=== PATIENT | female | born 1965 | race Hispanic/Latino ===

== ENCOUNTER 2018-12-25 15:32 | Observation (INO) | payer OTHER ==
[~2018-12-25] VITALS: Ht 162.6 cm; Wt 84.1 kg
[2018-12-25] MEDS ORDERED: ASPIRIN 81 MG CHEW TAB PO ONE ×2 (16:00→18:00)
--- NOTE | 2018-12-25 17:32 | Diagnostic Imaging Report ---
EXAMINATION: CXR 2 VIEW - HOPD INDICATION: ^[id number] ^[id number] COMPARISON: None FINDINGS: PA and lateral views TUBES and LINES: None. LUNGS: Lungs are well inflated. There is no evidence of pneumonia or pulmonary edema. PLEURA: No pleural effusion or pneumothorax. HEART AND MEDIASTINUM: The cardiomediastinal silhouette is unremarkable. BONES AND SOFT TISSUES: No acute osseous lesion. Soft tissues are unremarkable. UPPER ABDOMEN: No free air under the diaphragm. IMPRESSION: No acute thoracic abnormality. Signed by: Dr. Álvaro Buckner MD on 12/25/2018 5:28 PM
--- NOTE | 2018-12-25 17:32 | NUR ---
DR SARKAR AT BEDSIDE FOR RE-EVAL AND DISCUSING THE CURRENT PLAN OF CARE,VERBALIZED UNDERSTANDING. NO SIGNS OF ACUTE DISTRESS NOTED AT THIS TIME.
[2018-12-25] MEDS ORDERED: ENOXAPARIN INJ 80 MG/0.8 ML SYR SC ONE (18:30)
--- OUTSIDE RECORDS SUMMARY | 2018-12-25 18:42 | XMS REPORT | Clinical Summary ---
Author Author [facility] Address Unknown Phone Unavailable Care Team Providers Care Real Estate Marketing Coordinator Name Role Phone Pcp, No PCP Unavailable Allergies Comments Active Allergy Reactions Severity Noted Date Cephalexin 06/15/2017 Morphine 06/15/2017 Penicillins 06/15/2017 Medications End Date Status Medication Sig Dispensed Refills Start Date Active levothyroxine (SYNTHROID, Take 88 mcg 0 LEVOTHROID) 88 MCG tablet by mouth Every morning on an empty stomach. Active Problems Not on file Social History Date Tobacco Use Types Packs/Day Years Used Never Assessed Alcohol Use Drinks/Week oz/Week Comments No Sex Assigned at Date Recorded Not on file Industry Job Start Date Occupation Not on file Not on file Not on file Travel End Travel History Travel Start No recent travel history available. Last Filed Vital Signs Not on file Plan of Treatment Not on file Results Not on fileafter 12/24/2017 Insurance Payer Benefit Subscriber ID Type Phone Address Plan / Group [facility] H[facility]/POS CARE POS SELECT CHOICE
--- OUTSIDE RECORDS SUMMARY | 2018-12-25 18:42 | XMS REPORT ---
Author Author [facility] Address Unknown Phone Unavailable Care Team Providers Care Sales Market Leader Name Role Phone Greg SARKAR Unavailable Unavailable LAZ ALCAZAR Unavailable Unavailable Problems This patient has no known problems. Allergies, Adverse Reactions, Alerts This patient has no known allergies or adverse reactions. Medications This patient has no known medications. Results Test Description Test Time Test Comments Text Results Atomic Results Result Comments CXR 2 VIEW - HOPD 2018-12-25 17:28:00 [place] [address] Patient Name: DANIELLE VEE MR #: [id number] : 1965 Age/Sex: 53/F Req #: [id number] Adm Physician: Ordered by: JOSELYN SARKAR MD Report #: [id number] Location: [facility] Room/Bed: Procedure: [id number] HOPD/CXR 2 VIEW - HOPD Exam Date: 12/25/18 Exam Time: 1649 REPORT STATUS: Signed EXAMINATION: CXR 2 VIEW - HOPD INDICATION: [id number] COMPARISON: None FINDINGS: PA and lateral views TUBES and LINES: None. LUNGS: Lungs are well inflated. There is no evidence of pneumonia or pulmonary edema. PLEURA: No pleural effusion or pneumothorax. HEART AND MEDIASTINUM: The cardiomediastinal silhouette is unremarkable. BONES AND SOFT TISSUES: No acute osseous lesion. Soft tissues are unremarkable. UPPER ABDOMEN: No free air under the diaphragm. IMPRESSION: No acute thoracic abnormality. Signed by: Dr. Álvaro Rico MD on 12/25/2018 5:28 PM Dictated By: ÁLVARO RICO MD 27 Transcribed By: KRYSTINA on 12/25/181727 COPY TO: JOSELYN SARKAR MD RAPID TROPONIN I 2017-06-15 14:16:00 RAPID TROPONIN I (BEAKER) (test bijq=4378) < ng/mL <0.05 RAPID [id number] 14:16:00* Test Item Value Reference Range Comments RAPID CKMB (BEAKER) (test rwpd=2223) < ng/mL 0.0-4.3 CT, CHEST WITH IV CONTRAST- PE TEST [id number] 13:20:00Reason for exam:-> CHEST PAINonset todayIs the patient ?->NoWhat is the patient's sedation requirement?->No SedationFINAL REPORT HISTORY: CHEST PAIN COMPARISON : None Technique : Multiple axial images of the chest were performed from the lung apices to the lung bases with 5 mm slice thickness with the administration of IV contrast. Images were further reconstructed with 1.25 mm slice thickness through the pulmonary arteries. This exam was performed according to our departmental dose optimization program which includes automated exposure control, adjustment of the mA and/or kV according to patient size and/or use of iterative reconstructive technique. Comment: The thyroid gland is within normal limits. There is no hilar, mediastinal or axillary lymphadenopathy. The visualized portions of the spleen, adrenal glands, pancreas, and kidneys are within normal limits. There is some mild thickening of the distal esophagus of unclear etiology/significance. This could be related to underdistention or a focal esophagitis. The findings can be correlated with endoscopy to exclude the possibility of an underlying mass. In the posterior segment of the right hepatic lobe, there is an approximately 1.8 x 1.8 cm lesion with some peripheral nodular enhancement. This may represent a hepatic hemangioma. There is also some heterogeneous enhancement identified towards the hepatic dome. While this area may represent fibrosis, other etiologies/masses ca nnot be excluded. These findings should be further evaluated with an MRI, liver mass protocol. The patient is status post cholecystectomy. Post surgical changes are also identified around the stomach. The osseous structures as well as the s ubcutaneous soft tissues are without any abnormalities. In a subpleural location in the right middle lobe, there is a small nodular density measuring up to 5 mm in size. There is no pleural effusion, pneumothorax or infiltrate. No thrombus is identified in the main pulmonary arteries or the major subsegmental branches. Of note, evaluation for thrombus in the smaller subsegmental branches is limited secondary to the inherent technique of the examination. Impression: 1. No pulm onary embolism identified. 2. Subcentimeter right middle lobe nodular density. F ollow-up CT in 6 months is advised. Please see above for details. Signed: [facility] Verified Date/Time: 06/15/2017 13:20:50 Reading Location: [facility] B1 C013Y CT Body Reading Room B-TYPE NATRIURETIC FACTOR (BNP)2017-06-15 13:05:00* Test Item Value Reference Range Comments B-TYPE NATRIURETIC PEPTIDE (BEAKER) (test oehf=428) 109 pg/mL 0-100 CBC W/PLT COUNT & AUTO [id number] 13:04:00* Test Item Value Reference Range Comments WHITE BLOOD CELL COUNT (BEAKER) (test uskb=240) 3.9 10e3/ L 4.0-10.0 RED BLOOD CELL COUNT (BEAKER) (test ewik=997) 3.74 10e6/ L 4.00-5.00 HEMOGLOBIN (BEAKER) (test xabv=324) 7.0 g/dL 12.0-15.0 HEMATOCRIT (BEAKER) (test epbq=133) 23.8 % 36.0-45.0 MEAN CORPUSCULAR VOLUME (BEAKER) (test xhyi=788) 63.5 fL 82.0-99.0 MEAN CORPUSCULAR HEMOGLOBIN (BEAKER) (test vogu=450) 18.7 pg 27.0-33.0 MEAN CORPUSCULAR HEMOGLOBIN CONC (BEAKER) (test figw=249) 29.4 g/dL 32.0-36.0 RED CELL DISTRIBUTION WIDTH (BEAKER) (test tanm=284) 14.6 % 10.3-14.2 PLATELET COUNT (BEAKER) (test ceba=652) 291 10e3/ L 150-430 MEAN PLATELET VOLUME (BEAKER) (test wfpt=542) 7.7 fL 6.5-10.5 NEUTROPHILS RELATIVE PERCENT (BEAKER) (test mauo=304) 63 % LYMPHOCYTES RELATIVE PERCENT (BEAKER) (test chxx=346) 25 % MONOCYTES RELATIVE PERCENT (BEAKER) (test xhtn=320) 9 % EOSINOPHILS RELATIVE PERCENT (BEAKER) (test reyx=842) 2 % BASOPHILS RELATIVE PERCENT (BEAKER) (test cswh=365) 0 % NEUTROPHILS ABSOLUTE COUNT (BEAKER) (test xvoi=440) 2.48 10e3/ L 1.80-8.00 LYMPHOCYTES ABSOLUTE COUNT (BEAKER) (test gzqk=268) 0.96 10e3/ L 1.48-4.50 MONOCYTES ABSOLUTE COUNT (BEAKER) (test jzag=288) 0.37 10e3/ L 0.00-1.30 EOSINOPHILS ABSOLUTE COUNT (BEAKER) (test igha=280) 0.09 10e3/ L 0.00-0.50 BASOPHILS ABSOLUTE COUNT (BEAKER) (test bfgy=809) 0.01 10e3/ L 0.00-0.20 [id number] 12:54:00* Test Item Value Reference Range Comments PROTIME (BEAKER) (test kyob=209) 10.4 seconds 9.8-12.0 INR (BEAKER) (test rkhk=307) 1.0 <=5.9 PARTIAL THROMBOPLASTIN TIME (BEAKER) (test iwfe=362) 23.0 seconds 25.8-34.5 RECOMMENDED COUMADIN/WARFARIN INR THERAPY RANGESSTANDARD DOSE: 2.0 - 3.0 Inclu theron: PROPHYLAXIS for venous thrombosis, systemic embolization; TREATMENT for donta ous thrombosis and/or pulmonary embolus.HIGH RISK: Target INR is 2.5-3.5 for pat ients with mechanical heart valves.RAPID [id number] 12:52:00* Test Item Value Reference Range Comments RAPID CKMB (BEAKER) (test bsno=5819) < ng/mL 0.0-4.3 RAPID TROPONIN [id number] 12:52:00* Test Item Value Reference Range Comments RAPID TROPONIN I (BEAKER) (test xqyi=4283) < ng/mL <0.05 [id number] 12:48:00* Test Item Value Reference Range Comments MAGNESIUM (BEAKER) (test kqik=413) 1.8 mg/dL 1.5-3.0 CREATINE KINASE (CK)2017-06-15 12:48:00* Test Item Value Reference Range Comments CREATINE KINASE TOTAL (BEAKER) (test avmt=322) 72 U/L 25-235 BASIC METABOLIC [id number] 12:48:00* Test Item Value Reference Range Comments SODIUM (BEAKER) (test mxwa=320) 141 meq/L 135-148 POTASSIUM (BEAKER) (test bzqk=747) 3.3 meq/L 3.6-5.5 CHLORIDE (BEAKER) (test hfnt=553) 107 meq/L 98-106 CO2 (BEAKER) (test xews=764) 26 meq/L 24-32 BLOOD UREA NITROGEN (BEAKER) (test mjzh=344) 11 mg/dL 10-26 CREATININE (BEAKER) (test snxy=862) 0.56 mg/dL 0.50-1.20 GLUCOSE RANDOM (BEAKER) (test umfv=956) 85 mg/dL 70-110 CALCIUM (BEAKER) (test wlcf=982) 8.4 mg/dL 8.5-10.5 EGFR (BEAKER) (test nxji=2878) 115 mL/min/1.73 sq m INSUFFICIENT CLINICAL DATA TO CALCULATE ESTIMATED GFR.
--- NOTE | 2018-12-25 19:28 | NUR ---
[facility] CALLED FOR TRANSPORT - ETA 1HR
--- NOTE | 2018-12-25 20:14 | NUR ---
CALLED FOR ETA UPDATE WITH [facility] - 15-20MINS
[2018-12-25] MEDS ORDERED: FAMOTIDINE 20 MG/2 ML VIAL IV STA ×2 (20:41→21:07)
[2018-12-25 21:30] VITALS: BP 118/68
--- NOTE | 2018-12-25 21:30 | NUR ---
patient is a new admit that arrived via stretcher. patient is awake an talking. patient has been assisted into the bed. bed is in the lowest position and call boston is within reach. will continue to monitor patient.
[2018-12-25 21:32] VITALS: BP 118/68
[2018-12-25] MEDS ORDERED: LEVOTHYROXINE88 MCG PO (22:39)
--- NOTE | 2018-12-25 22:45 | NUR ---
patient is complaining of pain in the back. MD notified. received new orders for pain medication. will continue to monitor patient for pain.
[2018-12-25] MEDS ORDERED: ACETAMINOPHEN 325 MG TAB PO PRN (23:15)
[2018-12-25] MEDS ORDERED: ACETAMINOPHEN/CODEINE 300MG - 30MG TAB PO PRN (23:15)
[2018-12-25 23:25] LABS: CREATINE KINASE MB 0.3 ng/mL (0-5.0)
[2018-12-26] VITALS (7 sets, daily range): BP systolic 100–125; BP diastolic 59–82
--- NOTE | 2018-12-26 01:30 | NUR ---
patient reports no pain relief from medication. MD notified. Received new orders for Hydromorphone 0.5mg, Zofran 4mg and morning labs. Will administer new medications and continue to monitor patients pain.
[2018-12-26] MEDS ORDERED: ONDANSETRON HCL INJ 2MG/ML 2ML 2 MG/ML VIAL IV PRN (01:45)
[2018-12-26] MEDS ORDERED: HYDROMORPHONE 2MG/ML 2 MG/ML ML IV PRN (01:45)
[2018-12-26 06:06] LABS: CREATINE KINASE 52 IU/L (29-168)
[2018-12-26 06:30] LABS: CHOL/HDL RATIO 2.1 (3.0-3.6)
--- NOTE | 2018-12-26 06:49 | NUR ---
report given to day nurse. patient is resting comfortably in bed
[2018-12-26] MEDS: ASPIRIN 81 MG ENTERIC COATED PO SCH (09:33)
[2018-12-26] MEDS ORDERED: ASPIRIN 81 MG CHEW TAB PO ONE (12:15)
[2018-12-26 12:44] LABS: BLOOD UREA NITROGEN 18 mg/dL (7-26); BUN/CREATININE RATIO 27 (6-25); CREATININE, SERUM 0.67 mg/dL (0.57-1.11); EST GLOMERULAR FILTRATION RATE > 60 ML/MIN (60-)
[2018-12-26 13:40] LABS: CREATINE KINASE MB 0.3 ng/mL (0-5.0)
--- NOTE | 2018-12-26 16:10 | Diagnostic Imaging Report ---
EXAMINATION: CT of the abdomen and pelvis with contrast. TECHNIQUE: Helical CT images of the abdomen and pelvis were performed from the lung bases to the lesser trochanters after the intravenous administration of 150 cc of Omnipaque 300 and the oral administration of none. Coronal and sagittal reformatted images were obtained.Dose modulation, iterative reconstruction, and/or weight based adjustment of the mA/kV was utilized to reduce the radiation dose to as low as reasonably achievable. COMPARISON: None. CLINICAL HISTORY:abdominal pain DISCUSSION: ABDOMEN/PELVIS: LOWER THORAX:Unremarkable. HEPATOBILIARY: Enhancing lesions within the liver including right hepatic lobe 0.9 cm superiorly 0.1 cm inferiorly. No intra-or extrahepatic biliary ductal dilation. Cholecystectomy. SPLEEN: No splenomegaly. PANCREAS: No focal masses or ductal dilatation. ADRENALS: No adrenal nodules. KIDNEYS/URETERS: No hydronephrosis, stones, or solid mass lesions. PELVIC ORGANS/BLADDER: The bladder is normal. PERITONEUM/RETROPERITONEUM: No free air or fluid. LYMPH NODES: No intra-abdominal, retroperitoneal, pelvic or inguinal lymphadenopathy. VESSELS: Unremarkable GI TRACT: No distention or wall thickening. Gastric bypass BONES AND SOFT TISSUE: No bony destructive lesions. No soft tissue abnormalities. IMPRESSION: No acute CT finding. Signed by: Dr. Brody Lyman M.D. on 12/26/2018 4:07 PM
[2018-12-26] MEDS: METOPROLOL TARTRATE 25 MG TAB PO SCH (17:00)
[2018-12-26] MEDS ORDERED: IOPAMIDOL 370 MG/ML 200 ML INFUS..BTL INJ ONE (18:17)
[2018-12-26] MEDS ORDERED: SODIUM CHLORIDE 0.9% 50ML 50 ML ONE (18:17)
--- NOTE | 2018-12-26 19:00 | NUR ---
received report from day nurse. patient is resting comfortably in bed. bed is in lowest position and call boston is within reach. will continue to monitor patient.
--- NOTE | 2018-12-26 20:00 | NUR ---
patient has signed consent form for cardiac catherization procedure.
[2018-12-26] MEDS: HEPARIN SOD (PORCINE) 5,000 UNIT/ML VIAL SC SCH (20:25)
--- NOTE | 2018-12-26 20:28 | Consultation ---
DATE OF CONSULTATION: 12/26/2018 Cardiology Consultation REASON FOR CONSULTATION: Unstable angina, recurrent chest pain. HISTORY OF PRESENT ILLNESS: Ms. Jude Medina is a 53-year-old lady with past medical history of hypothyroidism, glucose intolerance, prior history of morbid obesity, status post Kerrie-en-Y gastric bypass operation back in 2012, positive family history of premature coronary artery disease with father having a heart attack at the age of 58, and brother of sudden cardiac at 47 from a heart attack. She reports that she was in her usual state of health up until in the last past week. She has been having progressively worsening fatigue and just not being quite herself. She developed chest pain for the first time back on Thursday on December 24, where she awoke that morning with substernal chest pressure, heaviness, tightness radiating up her left neck and left shoulder region associated with severe nausea that lasted several hours. She went to an urgent care clinic, where she was evaluated. However, upon arrival to the urgent care clinic, her symptoms largely resolved. She ended up leaving. She represented to another urgent care clinic after a second episode of left-sided chest discomfort broke out into a cold sweat associated with nausea, dyspnea, diaphoresis, and just looked terrible according to her . She went to an outpatient freestanding emergency room and there they checked cardiac biomarkers, which are negative x2. EKG is without any ischemia. The patient reports that the pain also resolved upon arrival there. She is very apprehensive of what is going on. In light of her family history, she is worried that she may have a heart attack and just like her brother did. PAST MEDICAL HISTORY: 1. Glucose intolerance/diabetes, resolved after extensive weight loss and after Kerrie-en-Y gastric bypass surgery. 2. Hypothyroidism. 3. Polymyalgia rheumatica. PAST SURGICAL HISTORY: History of gastric bypass surgery in April 2013. FAMILY HISTORY: Mother at 87 from Alzheimer's, had a heart attack, stroke, and hypertension. Father had a heart attack at the age of 58, however, he is alive at the age of 85. She had a brother, who of heart attack at the age of 47 with sudden cardiac associated with it. SOCIAL HISTORY: She is a life-long nonsmoker. Denies any alcohol or illicit drug use. ALLERGIES: INCLUDE PENICILLIN, KEFLEX, AND MORPHINE. CURRENT MEDICATIONS: Include synthroid 88 mcg daily. REVIEW OF SYSTEMS: GENERAL: Denies any fevers or chills. Positive for diaphoresis with the chest pain as noted above. HEENT: No headache, visual complaints, sore throat, stuffy nose. RESPIRATORY: Denies any pleuritic chest pain, has shortness of breath with minimal exertion as per HPI and shortness of breath with the chest pain symptoms. CARDIOVASCULAR: As per HPI. Denies any subjective palpitations or syncope. GASTROINTESTINAL: In spite of abdominal pain and nausea with chest pain, no vomiting, bright-red blood per rectum, melena, or hematemesis. GENITOURINARY: Denies any dysuria, pyuria, change in urinary frequency. MUSCULOSKELETAL: Denies any arthritis, back pains or aches. No typical claudication symptoms. NEUROLOGIC: Denies any focal weakness, numbness, tingling, seizures, headache, history of TIA, or stroke. Remainder of review of systems is negative, otherwise as mentioned. PHYSICAL EXAMINATION: VITAL SIGNS: Height of 64 inches, weight of 185 pounds, and BMI is 31.8. Temperature of 98.8, pulse 55, respiratory rate 18, blood pressure is 109/62, and O2 saturation 98% on room air. GENERAL: This is a very nourished, obese lady, who is currently in no apparent distress. HEENT: Normocephalic and atraumatic. Pupils are equal, round, and reactive to light. Extraocular movements are intact. Oropharynx is clear. NECK: No elevation of jugular venous pulsation. No carotid bruits. CARDIOVASCULAR: Regular rate and rhythm. Normal S1 and S2. Soft 1/6 systolic murmur at left lower sternal border. LUNGS: Clear to auscultation bilaterally. There is mild chest wall tenderness to palpation, which is different from her presenting chest pain symptoms. ABDOMEN: Soft, nontender, and obese with normoactive bowel sounds. There is no abdominal pain upon palpation. There are old laparoscopic scars. BACK: No costovertebral angle tenderness. EXTREMITIES: Warm with 1 to 2+ bilateral femoral pulses, 1+ pedal pulses, 1+ radial pulses. NEUROLOGIC: Cranial nerves II through XII are intact. Strength is 5/5, grossly nonfocal. PSYCHIATRIC: Normal fluent speech. Appropriate affect. No anxiety or delusion. LABORATORY DATA: Reviewed. Sodium 140, potassium 3.7, chloride 112, bicarb 21, BUN of 14, and creatinine 0.7. AST 29, ALT 18, alkaline phosphatase 104, total bilirubin 0.8, total protein of 7.7, albumin of 3.6, troponin is negative x3 values. Urine drug screen is negative. INR 0.9. Chest x-rays shows no acute abnormality. EKG reveals normal sinus rhythm, normal axis, and no ST-T wave changes. DIAGNOSES: 1. Repetitive chest pain symptoms, highly concerning of unstable angina with risk factor being history of diabetes, pre-gastric bypass, and a very strong family history of premature coronary artery disease. 2. Hypothyroidism. 3. Morbid obesity, status post gastric bypass surgery. PLAN/RECOMMENDATIONS: 1. From a cardiovascular standpoint, we had an extensive discussion with the patient in terms of different management options including risk of observation versus stress testing versus invasive cardiovascular evaluation. In light of her perceived cardiac risk and clinical presenting symptoms, and per strong patient preference, we will proceed with a diagnostic cardiac catheterization tomorrow morning, however, if she changes her mind, we will at least advocate for stress test. 2. We will check echocardiogram to evaluate her left ventricular function. 3. We will recommend aspirin, empiric statin therapy, and betablocker therapy if blood pressure can tolerate. We will go ahead, give her a dose of Lovenox as a precautionary measure. We will continue to follow this patient. Thank you for this referral. MD NAI Coleman/AYLIN /[id number]
[2018-12-26] MEDS ORDERED: ATORVASTATIN 10 MG TAB PO SCH (21:00)
[2018-12-27] VITALS: BP 106/66
[2018-12-27 04:00] VITALS: BP 121/57
--- NOTE | 2018-12-27 04:39 | NUR ---
patient has been informed of need to take a bath in hibiclens solution. patient has been given solution and states she will take a bath before 7am.
[2018-12-27] MEDS: SODIUM CHLORIDE 0.9% 1000ML 1,000 ML IV SCH ×2 (05:47→09:55)
[2018-12-27 06:00] LABS: EOSINOPHILS # (AUTO) 0.6 (0.0-0.4); EOSINOPHILS % 18.4 % (0.0-6.0); HEMATOCRIT 37.4 % (34.2-44.1); HEMOGLOBIN 11.7 g/dL (12.0-16.0); LYMPHOCYTES # (AUTO) 1.3 (1.0-3.2); LYMPHOCYTES % 43.1 % (18.0-39.1); MEAN CORPUSCULAR HEMOGLOBIN 27.8 pg (28-32); MEAN CORPUSCULAR HGB CONC 31.3 g/dL (31-35); MEAN CORPUSCULAR VOLUME 88.8 fL (81-99); MONOCYTES # (AUTO) 0.4 (0.2-0.8); MONOCYTES % 13.7 % (4.4-11.3); NEUTROPHILS # (AUTO) 0.7 (2.1-6.9); NEUTROPHILS % 23.8 % (38.7-80.0); PLATELET COUNT 186 x10e3/uL (140-360); RED BLOOD COUNT 4.21 x10e6/uL (3.6-5.1)
[2018-12-27 06:28] LABS: CREATINE KINASE MB 0.2 ng/mL (0-5.0)
[2018-12-27 06:47] LABS: ALANINE AMINOTRANSFERASE 324 IU/L (0-55); ALBUMIN 3.4 g/dL (3.5-5.0); ALKALINE PHOSPHATASE 180 IU/L (40-150); ANION GAP 8.8 mmol/L (8-16); BILIRUBIN,DIRECT 0.3 mg/dL (0.0-0.5); BLOOD UREA NITROGEN 10 mg/dL (7-26); BUN/CREATININE RATIO 15 (6-25); CALCIUM 8.5 mg/dL (8.4-10.2); CARBON DIOXIDE 23 mmol/L (22-29); CHLORIDE 111 mmol/L (98-107); CREATININE, SERUM 0.68 mg/dL (0.57-1.11); EST GLOMERULAR FILTRATION RATE > 60 ML/MIN (60-); GLUCOSE 89 mg/dL (74-118); LIPASE 41 U/L (8-78); MAGNESIUM 2.1 MG/DL (1.3-2.1); POTASSIUM 3.8 mmol/L (3.5-5.1); SODIUM 139 mmol/L (136-145)
--- NOTE | 2018-12-27 07:01 | NUR ---
report given to day nurse. patient is resting comfortably in bed. bed is in lowest position and call b[place] is within reach.
[2018-12-27 07:11] LABS: THYROID STIMULATING HORMONE 4.309 uIU/mL (0.350-4.940)
[2018-12-27 08:30] VITALS: BP 111/63
[2018-12-27] MEDS: METOPROLOL TARTRATE 25 MG TAB PO SCH (09:00)
[2018-12-27] MEDS: ASPIRIN 81 MG ENTERIC COATED PO SCH (09:00)
[2018-12-27] MEDS: HEPARIN SOD (PORCINE) 5,000 UNIT/ML VIAL SC SCH (09:00)
[2018-12-27] MEDS ORDERED: HEPARIN SOD (PORCINE) 1000 UNIT/ML 30ML ONE (09:11)
[2018-12-27] MEDS ORDERED: IOPAMIDOL 370 MG/ML 200 ML INFUS..BTL INJ ONE (09:12)
[2018-12-27] MEDS ORDERED: MIDAZOLAM HCL 2 MG/2 ML VIAL ONE (09:12)
[2018-12-27] MEDS ORDERED: FENTANYL CITRATE/PF 100MCG/2 ML INJ ONE (09:12)
[2018-12-27] MEDS ORDERED: LIDOCAINE HCL 2% LOCAL 20 ML VIAL ONE (09:12)
[2018-12-27] MEDS ORDERED: HEPARIN SOD/SOD CHLORIDE 2,000 ML ONE (09:12)
[2018-12-27] MEDS ORDERED: NITROGLYCERIN/D5W 200 MCG/ML 250 ML ONE (09:13)
[2018-12-27] MEDS ORDERED: SODIUM CHLORIDE 0.9% 1000ML 1,000 ML ONE (09:13)
--- NOTE | 2018-12-27 09:48 | NUR ---
patient leaving the unit on hospital bed alert and oriented to procedure
--- NOTE | 2018-12-27 10:45 | NUR ---
patient returned on floor via hospital bed, alert and oriented. pedal pulses present. small dressing to right groin, dry and in tact with scant drainage. call b[place] within reach and bed in lowest position.
[2018-12-27 12:29] VITALS: BP 130/66
[2018-12-27 14:01] LABS: ALBUMIN 3.3 g/dL (3.5-5.0); BILIRUBIN,DIRECT 0.2 mg/dL (0.0-0.5)
[2018-12-27 14:30] LABS: INR 1.06; PROTHROMBIN TIME 14.3 seconds (11.9-14.5)
--- NOTE | 2018-12-27 15:07 | NUR ---
patient alert and oriented. heart cath site in tact and soft with no hematoma and distal pulses present. discharge instructions given at this time, patient verbalized understanding. IV discontinued, catheter in tact and small dressing applied. patient to be wheeled from floor to personal auto for to drive home.
--- NOTE | 2018-12-27 16:18 | Operative Report ---
DATE OF PROCEDURE: 12/27/2018 SURGEON: Cassy Coats MD TITLE OF PROCEDURE: Left cardiac catheterization. INDICATIONS: Repeated typical angina and chest pain. The patient is admitted in the ER, continued to have chest pain, so she was taken urgently to the manager labor relations. TECHNICAL DETAILS: After the usual sterile preparation and draping, intravenous Versed and fentanyl given for sedation, local Xylocaine for anesthesia. A 4-[place] sheath established in the right common femoral artery, Chiquita left 4 and 3DRC catheter to engage the coronary, pigtail for hemodynamic measurement and left ventriculogram. At the end of the procedure, sheath was removed. Pressure applied manually. No complications. No blood loss. RESULTS: A. Coronary angiogram: 1. Left main free of disease. 2. LAD, several plaques at 20%. 3. Ramus, which is technically very very high diagonal, it is free of disease. 4. Right coronary artery giving large second obtuse marginal. First obtuse marginal is small. 5. Right coronary artery is a dominant artery with minimal plaquing. a. Hemodynamic: Aorta pressure 120/70, LV pressure 120/20. C: Left ventriculogram: Right anterior oblique view showed hypercontractile ventricle with an ejection fraction of 70%. IMPRESSION: 1. Minimal plaquing. 2. Dominant right coronary artery. 3. Left ventricular ejection fraction of 70%. COMPLICATIONS: None. BLOOD LOSS: None. Cassy Coats MD MOJ/MODL /[id number]
--- NOTE | 2018-12-28 01:30 | Discharge Summary ---
PRIMARY CARE DOCTOR: Dr. Bossman Soliz. FINAL DIAGNOSIS: Chest pain. Left heart catheterization unremarkable. SECONDARY DIAGNOSES: 1. Possible pancreatitis. 2. Hypothyroidism, stable. 3. History of gestational diabetes, but currently no diabetes with A1c of 4.9%. BOAT PATCHER PLASTIC: Dr. Coats, Cardiology. PROCEDURES/STUDIES PERFORMED: 1. Left heart catheterization. 2. Abdominal CT with IV contrast. HISTORY: Per H and P. HOSPITAL COURSE: The patient was admitted. Given the fact that her lipase was slightly elevated, the patient was given only clear liquid diet. Her abdominal pain did not come back. CT was negative for any pancreatic abnormalities. At this time, I disagree whether the patient had a pancreatitis or not, however, the patient was advised to be on a low-fat, low-grease, low oil diet. The patient's AST and ALT were in couple of 100s. She took dose of Tylenol No.3 and a dose of Lipitor. We will go ahead and repeat to make sure they are better before she goes home and also make sure her INR is normal. As far as her chest pain, her story was very convincing. Therefore, a left heart cath was done which was unremarkable, which was reassuring. The patient was seen and examined today. I have also updated her at the bedside. CONDITION ON DISCHARGE: Improved. DISCHARGE MEDICATIONS: Please see medication reconciliation form. MD DREW Barrett/AYLIN /[id number] cc: [facility]
== END 2018-12-27 15:10 | disposition home or self-care (01) ==
LOC: FSED 15:32 → ERHOLD 18:03 → IMCU 21:53
PROVIDERS: ADMIT Internal Medicine; ATTEND Internal Medicine
DX: R07.9 Chest pain, unspecified (principal); E03.9 Hypothyroidism, unspecified; Z90.49 Acquired absence of other specified parts of digestive tract; Z82.49 Family history of ischemic heart disease and other diseases of the circulatory system; Z88.1 Allergy status to other antibiotic agents; Z88.5 Allergy status to narcotic agent; Z88.0 Allergy status to penicillin; Z98.84 Bariatric surgery status; Z98.0 Intestinal bypass and anastomosis status; E66.01 Morbid (severe) obesity due to excess calories; Z68.31 Body mass index [BMI] 31.0-31.9, adult; Z86.32 Personal history of gestational diabetes
CPT/HCPCS: 36415 ×3; 71046; 74177; 80048; 80061; 80076; 82550 ×3; 82553 ×3; 82565; 83036; 83690 ×3; 83735; 84443; 84484 ×3; 84520; 85025; 85610; 93005; 93458; 99284; C1766; G0378 ×3; J1170; J1644 ×2; J1650; J2001; J2250; J2405; J7030; Q9967 ×2

== ENCOUNTER 2023-02-09 18:32 | Emergency (ER) | payer OTHER ==
[~2023-02-09] VITALS: Ht 162.6 cm; Wt 94.8 kg
[~2023-02-09 18:32] MED LIST: LEVOTHYROXINE88 MCG PO
[2023-02-09] MEDS ORDERED: ASPIRIN 325 MG TAB PO ONE (19:00)
[2023-02-09] MEDS ORDERED: ONDANSETRON HCL INJ 2MG/ML 2ML 2 MG/ML VIAL IV PRN (19:00)
[2023-02-09 19:01] LABS: BASOPHILS % 0.7 % (0.0-1.0); EOSINOPHILS # (AUTO) 0.1 (0.0-0.4); EOSINOPHILS % 2.8 % (0.0-6.0); HEMOGLOBIN 9.5 g/dL (12.0-16.0); LYMPHOCYTES # (AUTO) 1.8 (1.0-3.2); MEAN CORPUSCULAR HEMOGLOBIN 24.8 pg (28-32); MEAN CORPUSCULAR HGB CONC 30.6 g/dL (31-35); MEAN CORPUSCULAR VOLUME 80.9 fL (81-99); MONOCYTES # (AUTO) 0.3 (0.2-0.8); NEUTROPHILS % 47.5 % (38.7-80.0); PLATELET COUNT 227 x10e3/uL (140-360); RED BLOOD COUNT 3.83 x10e6/uL (3.6-5.1)
[2023-02-09 19:19] LABS: ALBUMIN 3.9 g/dL (3.5-5.0); ALBUMIN/GLOBULIN RATIO 1.3 (0.8-2.0); ANION GAP 8.3 mmol/L (8-16); CALCIUM 8.6 mg/dL (8.4-10.2); CREATININE, SERUM 0.77 mg/dL (0.57-1.11); POTASSIUM 4.3 mmol/L (3.5-5.1)
[2023-02-09 23:21] VITALS: BP 119/73; PULSE 68; RESP 16; TEMP 98.1; O2SAT 100
== END 2023-02-09 23:18 | disposition home or self-care (01) ==
LOC: ER 18:34
DX: R07.89 Other chest pain (principal); R11.0 Nausea; R42 Dizziness and giddiness
CPT/HCPCS: 36415; 71045; 80053; 82550; 82553; 84484; 85025; 93005; 99284; J2405